=== PATIENT | female | born 1990 | race Caucasian/White ===

== ENCOUNTER 2023-01-05 14:49 | Outpatient (CLI) | payer OTHER, MEDICAID, SELFPAY | END 2023-01-05 14:50 | disposition home or self-care (01) | PROVIDERS: PCP Nurse Practitioner Family; Visit Provider Nurse Practitioner Family | DX: R53.83 Other fatigue (principal); M25.50 Pain in unspecified joint | CPT/HCPCS: 84443; 85025; 85651; 86140; 87798 ==